=== PATIENT | male | born 1975 | race Hispanic/Latino ===

== ENCOUNTER → 2023-12-07 08:40 | Outpatient (REF) | payer OTHER, SELFPAY ==
[2023-12-07 09:21] LABS: % Basophils 0.5 % (0-2); % Eosinophils 3.4 % (0-6); % Immature Granulocytes 0.5 % (0-0.5); % Lymphocytes 38.8 % (20.5-51.1); % Monocytes 9.3 % (1.7-9.3); % Neutrophils 47.5 % (42.2-75.2); Absolute Eosinophils 0.3 10^3/uL (0-0.7); Absolute Monocytes 0.7 10^3/uL (0.1-0.6); Absolute Neutrophils 3.7 10^3/uL (1.4-6.5); Hematocrit 41.9 % (39.0-52.0); Hemoglobin 14.6 g/dL (13.0-18.0); Mean Corp Hgb Conc. 34.8 g/dL (33.0-37.0); Mean Corpuscular Hgb 29.4 pg (27.0-31.0); Mean Corpuscular Volume 84.3 fL (80.0-94.0); Nucleated Red Blood Cells % 0 % (-); Platelet Count 254 10^3/uL (130-400); Red Blood Cell Count 4.97 10^6/uL (4.70-6.10); Red Cell Dist. Width 13.4 % (11.5-14.5); Reticulocyte Count 1.8 % (0.4-2.8); White Blood Cell Count 7.8 10^3/uL (4.8-10.8)
[2023-12-07 10:01] LABS: ALT (SGPT) 72 U/L (0-50); AST (SGOT) 45 U/L (17-59); Albumin 4.7 g/dl (3.5-5.0); Alkaline Phosphatase 90 U/L (38-126); Blood Urea Nitrogen 15 mg/dl (9-20); Calcium 9.7 mg/dl (8.4-10.2); Carbon Dioxide 28 mmol/L (22-30); Chloride 104 mmol/L (98-107); Glucose 119 mg/dl (70-99); HDL Cholesterol 31 mg/dl; LDL Cholesterol, Calculated 111 mg/dl; Potassium 4.5 mmol/L (3.5-5.1); Sodium 142 mmol/L (135-145); Total Bilirubin 0.7 mg/dl (0.2-1.3); Total Cholesterol 173 mg/dl (50-199); Total Protein 7.4 g/dl (6.3-8.2); Triglyceride 159 mg/dl (10-149); Very Low Density Lipoprotein 31 mg/dl (0-30); eGFR > 60.00
== END ==
LOC: REG 08:40
PROVIDERS: ATTENDING PHYSICIAN Internal Medicine
DX: I10 Essential (primary) hypertension (principal); Z13.1 Encounter for screening for diabetes mellitus
CPT/HCPCS: 36415; 80053; 80061; 83036; 85025; 85045; G0103

== ENCOUNTER 2024-12-09 09:11 | Emergency (ER) | payer SELFPAY ==
[2024-12-09 09:17] VITALS: BP 144/96
[2024-12-09 10:46] LABS: Urine Character Clear (Clear)
[2024-12-09 10:50] LABS: Urine Squamous Cell 0-2 /LPF (Few)
[2024-12-09 10:51] LABS: Urine Red Blood Cell 50-60 /HPF (0-2)
[2024-12-09] MEDS: TORADOL 30 MG IM (11:34)
--- NOTE | 2024-12-09 11:40 | ED.GENMED ---
History of Present Illness
General
Chief Complaint: Urinary Symptoms
Time Seen by Provider: 12/09/24 10:08
History of Present Illness
History of Present Illness:
49-year-old male presents to the emergency department for evaluation of left flank pain. He is 2 weeks status post ureteral stent placement performed at [facility]. He states that he was unable to follow-up with the urologist as an
outpatient due to his lack of health insurance. He denies blood in the urine or dysuria. No fevers or chills.
Review of Systems
Review of Systems
Allergies reviewed?: Yes
All Other Systems: ROS reviewed and negative except as documented in HPI and ROS
Phy Exam
Physical Exam
Physical Exam:
GEN: Well appearing, NAD, WDWN
HEENT: Oral mucosa moist, no scleral icterus
Cardiac: Regular rate
Lung: No respiratory distress, no tachypnea
Abdomen: Soft, grossly nontender
MSK: No gross deformity or injuries
Skin: Good color, no pallor or jaundice, no rashes
Neuro: AO x3, moves all extremities freely
Psych: Calm, cooperative
Course
Orders/Labs/Results
Orders:
Orders
12/09/24 10:34
Urinalysis Reflex To Culture Urgent
Date Specimen was Collected: 12/09/24
Time Specimen was Collected: 10:33
Urine Microscopic Reflex Cult Urgent
Urine Culture Urgent
GIOVANI Source: U
Specimen Description:
Date Specimen was Collected: 12/09/24
Time Specimen was Collected: 10:33
12/09/24 11:16
CT Abd/pel Without Iv Or Oral Urgent
Comment:
Reason For Exam: flank pain/hematuria
Ketorolac [Toradol] 30 mg IM NOW STA
Abnormal Lab Results
12/09/24
10:34
Ur Occult Blood Reflex 4+ A
(Negative)
Leukocyte Esterase Rfl 2+ A
(Negative)
Urine RBC 50-60 A /HPF
(0-2)
Urine Bacteria (Reflex) Few A
(Negative)
Urine Albumin (Reflex) 3+ A
(Neg - Trace)
Vital Signs
Initial and Last Documented VS:
Initial Vital Signs
Temp Pulse Resp BP Pulse Ox
98.1 F 84 20 144/96 95
12/09/24 09:17 12/09/24 09:17 12/09/24 09:17 12/09/24 09:17 12/09/24 09:17
Last Documented Vital Signs
Temp Pulse Resp BP Pulse Ox
98.1 F 84 20 144/96 95
12/09/24 09:17 12/09/24 09:17 12/09/24 09:12/09/24 09:12/09/24 11:41
MDM/Problems Addressed
MDM/Problems Addressed:
Imaging reveals well-placed ureteral stent with a proximal UPJ stone, no evidence of hydronephrosis. I was able to contact the patient's on-call urologist, Dr. Alvarado, who states that unfortunately this patient cannot be seen by their office for
second procedure/ureteroscopy due to lack of health insurance. At this time the patient is clinically stable with no signs of distress. He is likely experiencing stent pain. He will require follow-up through the free clinic here at the hospital
to set up a urology follow-up in order to undergo secondary ureteroscopy/lithotripsy/stent removal. Will prescribe NSAIDs and tamsulosin for supportive relief
*Pulse Oximetry
SaO2: 95
Oxygen Mode of Delivery: Room air
Patient hypoxic: no
*Critical Care Note
Total Time (30-74mins, 75-104mins- exclusive of procedures): Not Applicable
ED Attending Note
-
Portions of this chart may have been created with voice recognition software.� Occasional wrong word or��sound alike� substitutions may have occurred due to the inherent limitations of voice recognition software.
Discharge Plan
Departure
Patient Disposition: Home (Routine Discharge)
Date of Disposition: 12/09/24
Time of Disposition: 15:30
Patient with high blood pressure during this ER visit?: No
Discharge Problem:
Pain due to ureteral stent
Instructions: Ureteral stent placement (DC)
Prescriptions:
New
tamsulosin 0.4 mg capsule
0.4 mg PO HS Qty: 30 0RF
ibuprofen 600 mg tablet
600 mg PO Q8H PRN (Reason: Pain) Qty: 60 0RF
Referrals:
NONE,* [Family Provider, Internal Medicine]
Activity Restrictions/Additional Instructions:
Necesitar� un procedimiento llamado ureteroscopia para posiblemente extraer el c�lculo renal y el stent. Meenakshi no es un procedimiento de emergencia; sin embargo, deber� ser remitido a urolog�a a sunitha[facility]. Le estoy
recetando medicamentos para aliviar el dolor. No tome Motrin/Advil de venta aviva mientras los est� tomando. Si presenta dolor intenso o fiebre, regrese a urgencias.
Interventions
Interventions:
*Risk Screen - Suicide Last Done: 12/09/24 09:17
*General Assessment Last Done: 12/09/24 09:17
*Neglect/Abuse Screening Last Done: 12/09/24 09:17
WF-Udhavu-Enevgrmxax Assessment Last Done: 12/09/24 10:23
ED-Male Genitourinary Assessment Last Done: 12/09/24 10:23
Discharge Date and Time
Print Language: TOGOLESE
== END 2024-12-09 15:47 | disposition home or self-care (01) ==
LOC: EMR 09:11
PROVIDERS: Physician Assistant; EMERGENCY PHYSICIAN Emergency Medicine
DX: T83.84XA Pain due to genitourinary prosthetic devices, implants and grafts, initial encounter (principal); Y83.1 Surgical operation with implant of artificial internal device as the cause of abnormal reaction of the patient, or of later complication, without mention of misadventure at the time of the procedure; Z59.71 Insufficient health insurance coverage
CPT/HCPCS: 99284; 96372; 74176; 81003; 81015; 87086

== ENCOUNTER 2024-12-26 05:59 | Day surgery (SDC) | payer OTHER, SELFPAY ==
[2024-12-26] VITALS (9 sets, daily range): BP systolic 123–156; BP diastolic 81–102; BMI 36.5; BMI 80.4
[2024-12-26] MEDS: NORMOSOL-R/PLASMALYTE-A 1000 IV (06:43)
[2024-12-26] MEDS: FLOMAX 0.4 MG PO (08:56)
== END 2024-12-26 09:45 | disposition home or self-care (01) ==
LOC: SDS 05:59
PROVIDERS: ATTENDING PHYSICIAN Specialist
DX: N20.1 Calculus of ureter (principal)
CPT/HCPCS: 52356; 74018; 76000; C1894; C2617